=== PATIENT | male | born 2000 | race Caucasian/White ===

== ENCOUNTER 2020-09-29 14:16 | Emergency (ER) | payer OTHER, SELFPAY ==
[2020-09-29 14:23] VITALS: BP 109/70; PULSE 80; RESP 16; TEMP 36.9; O2SAT 98; BMI 22.0
--- NOTE | 2020-09-29 14:25 | ED.ANIMALBIT ---
HPI - Animal Bite General Chief Complaint: Animal Bite Stated Complaint: dog bite - face Time Seen by Provider: 09/29/20 14:25 Source: patient Mode of arrival: ambulatory Limitations: no limitations History of Present Illness HPI narrative: 20 y/o healthy male presenting with a dog bite to his right jaw and neck. His [place] prieto/lab mix bit/scratched his jaw and neck on the right side while playing. Not up to date with Tetanus. Bleeding controlled on arrival and wounds appear superficial. His dog is not up to date on his shots, only goes into his backyard supervised and is in his normal state of health. complaint: animal bite Onset (ago): hour(s) (2) Animal: dog Description of animal: household pet Mechanism: bite and scratch Location: face and neck Pain description: dull Severity scale (1-10): 4 Context: playing with animal Associated symptoms: none Related Data Patient tetanus UTD: No Previous Rx's Medication Instructions Recorded amoxicillin-pot clavulanate 1 tab PO BID #14 tab 09/29/20 [Augmentin] Allergies Allergy/AdvReac Type Severity Reaction Status Date / Time No Known Allergies Allergy Unverified 05/27/20 16:45 Review of Systems Review of Systems: Constitutional: No Fever, No Chills Cardiovascular: No Chest Pain, No SOB Respiratory: No Cough, No Sputum Gastrointestinal: No Nausea, No Vomiting Musculoskeletal: No joint pain, No Myalgias Skin: + Skin Lesions, No rash Neuro: No Weakness, No Numbness, No Dizziness, No Headache Heme/Lymph: No Bruising, No Lymphadenopathy PMFSH Past Medical History Attestation statement: The following information was validated with the patient. Medical History No known health problems Social History Social History Advance Directives: No Advance Directives Information Provided: Yes Physical Exam Vital Signs: Vital Signs: Last Vital Signs Temp 98.5 F 09/29/20 14:23 Pulse 80 09/29/20 14:23 Resp 16 09/29/20 14:23 BP 109/70 09/29/20 14:23 Pulse Ox 98 09/29/20 14:23 Body Mass Index 22.0 Appearance: Alert. Oriented X3. No acute distress. HEENT: superficial scratches to right jaw area with 2 small puncture wounds to submandibular area. no surrounding erythema or drainage CVS: Normal heart rate and rhythm. Pulses normal. Respiratory: No respiratory distress. Skin: Skin warm and dry. Normal skin color. Normal skin turgor. No rashes. Extremities: atraumatic Neuro: Oriented X 3. No motor deficit. No sensory deficit. Course Course Course Narrative: rapid medical assessment: 20 y/o male presenting with dog bite to face. His dog scratches and bit his right jaw and upper neck - minor superficial scratches with 2 puncture wounds. Dog is NOT up to date on shots. Patient not up to date on tetanus - ordered. Will plan to irrigate and start on abx. Reevaluation(s) Reevaluation #1: Wounds irrigated extensively with saline and cleaned with betadine. Small puncture wounds on neck used small steri-strips to reapproximate, they are superficial and were approximately nicely. Very low risk of rabies. Patient counseled on management and he will f/u with PCP as needed. Augmentin sent to pharmacy. Discharge Plan Discharge Clinical Impression: Dog bite Qualifiers: Encounter type: initial encounter Qualified Code(s): W54.0XXA - Bitten by dog, initial encounter Patient Disposition: Home, Self-Care Instructions: Animal Bite (ED) Additional Instructions: You were given a tetanus shot today. Keep wounds clean and dry. You may wash with soap and water, then pat dry. Use bacitracin or Neosporin to the area 2x per day. Take the prescribed antibiotics to help prevent infection. Allow the steri-strips to fall off on their own, do not peel them off. Follow up with your doctor as needed. Prescriptions: New amoxicillin-pot clavulanate [Augmentin] 875-125 mg tablet 1 tab PO BID Qty: 14 RF: 0
== END 2020-09-29 15:35 | disposition home or self-care (01) ==
LOC: HO.ED 15:11
PROVIDERS: Emergency Provider Emergency Medicine; PCP Internal Medicine
DX: S10.87XA Other superficial bite of other specified part of neck, initial encounter (principal); S00.87XA Other superficial bite of other part of head, initial encounter; S00.81XA Abrasion of other part of head, initial encounter; M54.2 Cervicalgia; W54.0XXA Bitten by dog, initial encounter; Y93.9 Activity, unspecified; Y92.009 Unspecified place in unspecified non-institutional (private) residence as the place of occurrence of the external cause; Y99.9 Unspecified external cause status; Z23 Encounter for immunization
CPT/HCPCS: 90471; 90715; 99283; 99284